=== PATIENT | female | born 1995 | race Caucasian/White ===

== ENCOUNTER 2025-05-11 05:39 | Emergency (ER) | payer OTHER ==
[~2025-05-11] VITALS: Ht 165.1 cm; Wt 104.3 kg
[2025-05-11] MEDS ORDERED: DICYCLOMINE HCL LIQ 10 MG/5 ML UDC ONE (05:56)
[2025-05-11] MEDS ORDERED: ONDANSETRON 4 MG/2 ML VIAL ONE (05:56)
[2025-05-11] MEDS ORDERED: HYDROMORPHONE 1 MG/1 ML DISP.SYRIN ONE (05:57)
[2025-05-11] MEDS ORDERED: DIPHENOXYLATE HCL/ATROP SULF TABLET ONE (05:57)
[2025-05-11 05:59] LABS: PLATELET COUNT (AUTO) 370 K/uL (179-408); RED BLOOD CELL COUNT(AUTO) 5.48 MIL/uL (3.63-4.92); RED CELL DISTRIBUTION WIDTH 18.5 % (12.3-17.7); WHITE BLOOD COUNT (AUTO) 14.2 K/uL (3.8-11.8)
[2025-05-11] MEDS: ONDANSETRON 4 MG/2 ML VIAL IV ONE (06:02)
[2025-05-11] MEDS: DICYCLOMINE HCL LIQ 10 MG/5 ML UDC PO ONE (06:02)
[2025-05-11] MEDS: HYDROMORPHONE 1 MG/1 ML DISP.SYRIN IV ONE (06:02)
[2025-05-11] MEDS: DIPHENOXYLATE HCL/ATROP SULF TABLET PO ONE (06:02)
[2025-05-11] MEDS: IV NORMAL SALINE 1000 ML BAG IV ONE (06:06)
[2025-05-11 06:07] LABS: CREATININE 0.9 mg/dL (0.6-1.3); SODIUM SERUM 139 mmol/L (136-145); UREA NITROGEN, BLOOD 19 mg/dL (7-18)
[2025-05-11 06:13] LABS: ASPARTATE AMINOTRANSFERASE 16 U/L (15-37); TOTAL PROTEIN, SERUM 8.0 g/dL (6.4-8.2)
[2025-05-11 06:24] VITALS: BP 121/68
[2025-05-11 06:28] LABS: PREGNANCY TEST SERUM QUAN < 1 miul/L (0-6)
[2025-05-11] MEDS ORDERED: ONDA-243 PO (07:57)
[2025-05-11] MEDS ORDERED: LOPE2CAP40 PO (07:57)
[2025-05-11] MEDS ORDERED: FAMO20TA8 PO (07:57)
[2025-05-11 08:07] VITALS: BP 130/69; TEMP 97.9; O2SAT 98
== END 2025-05-11 08:09 | disposition home or self-care (01) ==
LOC: ER 05:39
DX: R10.13 Epigastric pain (principal); R11.2 Nausea with vomiting, unspecified; R19.7 Diarrhea, unspecified; K80.20 Calculus of gallbladder without cholecystitis without obstruction; Z87.19 Personal history of other diseases of the digestive system
CPT/HCPCS: 99285; 96374; 76705; 96361; 96375; 80076; 80048; 83690; 85025; 84702; 36415; J2405; J1171; J7040; A4606; A4663